=== PATIENT | male | born 1960 | race Caucasian/White ===

== ENCOUNTER 2017-10-04 00:50 | Inpatient (IN) | payer MEDICAID ==
[2017-10-04] VITALS: BP 128/59
[~2017-10-04] VITALS: Ht 180.3 cm; Wt 93.0 kg
[2017-10-04] MEDS ORDERED: MORPHINE SULFATE 8mg/ml INJ SDV IV PRN (01:15)
[2017-10-04] MEDS ORDERED: NITROGLYCERIN 0.4 MG SL TAB SL PRN (01:15)
[2017-10-04] MEDS ORDERED: ONDANSETRON HCL 4 MG/2 ML VIAL IV PRN (01:30)
[2017-10-04 05:00] VITALS: BP 113/67
[2017-10-04 06:49] LABS: Basophils # (auto) 0 uL; Eosinophils # (auto) 0.1 uL; Hemoglobin 10.1 g/dL (13.5-17.5); Monocytes # (auto) 0.3 uL; White Blood Cell 4.5 10^3/uL (4.4-10.8)
[2017-10-04 06:53] LABS: Basophils % (auto) 0.9 % (0.0-2.0); Eosinophils % (auto) 2.2 % (0.0-7.0); Hematocrit 33.3 % (41.0-53.0); Lymphocytes # (auto) 0.8 uL; Mean Corpuscular Hgb Conc. 30.3 g/dL (32.0-36.0); Mean Corpuscular Volume 69.2 fL (80.0-100.0); Monocytes % (auto) 7.3 % (0.0-12.0); Neutrophils # (auto) 3.2 uL; Neutrophils % (auto) 72.6 % (37.0-80.0); Platelet Count (auto) 229 10^3/uL (140-450); Red Blood Cells 4.81 10^6/uL (4.5-5.90)
[2017-10-04 07:01] LABS: BUN/Creatinine Ratio 13.6; Potassium 3.5 mmol/L (3.5-5.1)
[2017-10-04 07:09] LABS: INR 1.1 (0.9-1.15); Partial Thromboplastin Time 30.8 sec (22.64-33.71)
[2017-10-04 07:10] LABS: Red Cell Distribution Width 32.6 % (11.8-14.3)
[2017-10-04 09:00] VITALS: BP 115/65
[2017-10-04] MEDS ORDERED: IODIXANOL 320MG/ML 100ML BTL IV ONE (11:15)
[2017-10-04] MEDS ORDERED: LIDOCAINE 2%HCL (LOCAL ANESTH.) INJ 20ML MDV ONE (11:16)
[2017-10-04] MEDS: ANGIOMAX 250 MG VIAL IV ONE (12:04)
[2017-10-04] MEDS ORDERED: VERAPAMIL 2.5MG/ML INJ 2ML VIAL IV ONE (12:04)
[2017-10-04] MEDS ORDERED: MIDAZOLAM HCL 1MG/1ML-2 ML VIAL ONE (12:05)
[2017-10-04] MEDS ORDERED: fentaNYL CITRATE 100 MCG/2 ML VL ONE (12:05)
[2017-10-04] MEDS ORDERED: IOHEXOL 350 MG/ML 100ML IJ ONE (12:19)
[2017-10-04] MEDS ORDERED: ASPirin 325 MG TAB ONE (12:40)
[2017-10-04] MEDS ORDERED: CLOPIDOGREL BISULFATE 75 MG TAB ONE (12:41)
[2017-10-04 17:00] VITALS: BP 115/65
[2017-10-04 20:21] LABS: % Iron Saturation 6.5 % (20-55)
[2017-10-04 20:44] LABS: Folate (Folic Acid) 13.07 ng/mL (5.38-24)
[2017-10-04 22:00] VITALS: BP 116/68
[2017-10-04 22:45] LABS: Hematocrit 32.7 % (41.0-53.0); Hemoglobin 9.9 g/dL (13.5-17.5)
[2017-10-05 05:00] VITALS: BP 121/73
[2017-10-05 06:40] LABS: Basophils # (auto) 0.1 uL; Eosinophils # (auto) 0.1 uL; Eosinophils % (auto) 2.4 % (0.0-7.0); Hemoglobin 9.6 g/dL (13.5-17.5); Lymphocytes # (auto) 0.7 uL; Mean Corpuscular Hgb Conc. 30.2 g/dL (32.0-36.0); Monocytes # (auto) 0.4 uL; Neutrophils # (auto) 3.8 uL; White Blood Cell 5.1 10^3/uL (4.4-10.8)
[2017-10-05 06:41] LABS: Hematocrit 31.6 % (41.0-53.0); Lymphocytes % (auto) 13.7 % (10.0-50.0); Mean Corpuscular Hemoglobin 20.9 pg (28.0-32.0); Mean Corpuscular Volume 69.2 fL (80.0-100.0); Monocytes % (auto) 8.3 % (0.0-12.0); Neutrophils % (auto) 74.6 % (37.0-80.0); Platelet Count (auto) 260 10^3/uL (140-450); Red Blood Cells 4.57 10^6/uL (4.5-5.90)
[2017-10-05 06:53] LABS: BUN/Creatinine Ratio 14.8; Potassium 3.4 mmol/L (3.5-5.1)
[2017-10-05 06:54] LABS: Calcium 7.8 mg/dL (8.5-10.1)
[2017-10-05 07:13] LABS: Red Cell Distribution Width 32.9 % (11.8-14.3)
[2017-10-05] MEDS: ASPirin 81 mg TAB PO SCH (09:58)
[2017-10-05 13:00] VITALS: BP 101/53
[2017-10-05] MEDS: SODIUM FERR GLUC 62.5MG/5ML 125 MG in SODIUM CHL 0.9% 100 ML IV SCH (13:54)
[2017-10-05 17:00] VITALS: BP 122/69
[2017-10-05 17:51] LABS: Eosinophils # (auto) 0.1 uL; Hemoglobin 9.6 g/dL (13.5-17.5); Lymphocytes # (auto) 0.8 uL; Mean Corpuscular Volume 69.7 fL (80.0-100.0); Monocytes # (auto) 0.4 uL; Neutrophils # (auto) 3.6 uL; Nucleated Red Blood Cells % 0.1 %; White Blood Cell 4.9 10^3/uL (4.4-10.8)
[2017-10-05 17:53] LABS: Basophils # (auto) 0 uL; Basophils % (auto) 0.7 % (0.0-2.0); Eosinophils % (auto) 2.1 % (0.0-7.0); Hematocrit 32.2 % (41.0-53.0); Mean Corpuscular Hemoglobin 20.7 pg (28.0-32.0); Mean Corpuscular Hgb Conc. 29.8 g/dL (32.0-36.0); Monocytes % (auto) 8.9 % (0.0-12.0); Neutrophils % (auto) 72.3 % (37.0-80.0); Platelet Count (auto) 266 10^3/uL (140-450); Red Blood Cells 4.63 10^6/uL (4.5-5.90)
[2017-10-05 17:58] LABS: Red Cell Distribution Width 33.5 % (11.8-14.3)
[2017-10-05 22:00] VITALS: BP 105/68
[2017-10-05] MEDS: ATORVASTATIN 20 MG TAB PO SCH (22:35)
[2017-10-06 05:00] VITALS: BP 114/64
[2017-10-06 06:34] LABS: Basophils # (auto) 0 uL; Eosinophils # (auto) 0.1 uL; Hemoglobin 9.7 g/dL (13.5-17.5); Lymphocytes # (auto) 0.6 uL; Monocytes # (auto) 0.3 uL
[2017-10-06 06:36] LABS: Basophils % (auto) 0.9 % (0.0-2.0); Eosinophils % (auto) 3.8 % (0.0-7.0); Hematocrit 31.7 % (41.0-53.0); Lymphocytes % (auto) 15.9 % (10.0-50.0); Mean Corpuscular Hemoglobin 21.1 pg (28.0-32.0); Mean Corpuscular Hgb Conc. 30.7 g/dL (32.0-36.0); Mean Corpuscular Volume 68.9 fL (80.0-100.0); Monocytes % (auto) 8.2 % (0.0-12.0); Neutrophils # (auto) 2.8 uL; Neutrophils % (auto) 71.2 % (37.0-80.0); Platelet Count (auto) 274 10^3/uL (140-450); Red Blood Cells 4.59 10^6/uL (4.5-5.90); White Blood Cell 3.9 10^3/uL (4.4-10.8)
[2017-10-06 06:41] LABS: INR 1.07 (0.9-1.15); Partial Thromboplastin Time 31.9 sec (22.64-33.71); Prothrombin Time 11.7 sec (9.37-12.3)
[2017-10-06 06:46] LABS: BUN/Creatinine Ratio 10.2; Potassium 3.4 mmol/L (3.5-5.1)
[2017-10-06 06:50] LABS: Red Cell Distribution Width 33.6 % (11.8-14.3)
[2017-10-06 08:20] VITALS: BP 123/74
[2017-10-06] MEDS: ASPirin 81 mg TAB PO SCH (09:54)
[2017-10-06] MEDS ORDERED: POTASSIUM CHL 20 Meq TABLET PO ONE (12:15)
[2017-10-06] MEDS: SODIUM FERR GLUC 62.5MG/5ML 125 MG in SODIUM CHL 0.9% 100 ML IV SCH (14:32)
[2017-10-06 17:17] VITALS: BP 115/74
[2017-10-06] MEDS: ATORVASTATIN 20 MG TAB PO SCH (21:44)
[2017-10-06 22:00] VITALS: BP 107/63
[2017-10-07 05:00] VITALS: BP 112/75
[2017-10-07 06:45] LABS: Basophils # (auto) 0 uL; Eosinophils # (auto) 0.1 uL; Hemoglobin 10.1 g/dL (13.5-17.5); Monocytes # (auto) 0.4 uL; Monocytes % (auto) 9.6 % (0.0-12.0); Neutrophils # (auto) 2.6 uL; White Blood Cell 3.8 10^3/uL (4.4-10.8)
[2017-10-07 06:47] LABS: Eosinophils % (auto) 2.8 % (0.0-7.0); Hematocrit 34.5 % (41.0-53.0); Lymphocytes # (auto) 0.6 uL; Mean Corpuscular Hemoglobin 20.7 pg (28.0-32.0); Mean Corpuscular Hgb Conc. 29.3 g/dL (32.0-36.0); Mean Corpuscular Volume 70.5 fL (80.0-100.0); Neutrophils % (auto) 69.6 % (37.0-80.0); Nucleated Red Blood Cells % 0.1 %; Platelet Count (auto) 301 10^3/uL (140-450); Red Blood Cells 4.88 10^6/uL (4.5-5.90)
[2017-10-07 06:53] LABS: Red Cell Distribution Width 33.6 % (11.8-14.3)
[2017-10-07 07:03] LABS: BUN/Creatinine Ratio 7.9; Calcium 7.8 mg/dL (8.5-10.1); Magnesium 2.2 mg/dL (1.6-2.6)
[2017-10-07 07:12] LABS: Potassium 3.9 mmol/L (3.5-5.1)
[2017-10-07 09:00] VITALS: BP 113/71
[2017-10-07] MEDS: ASPirin 81 mg TAB PO SCH (09:23)
[2017-10-07] MEDS ORDERED: MORPHINE SULFATE 8mg/ml INJ SDV IV PRN (09:30)
[2017-10-07] MEDS ORDERED: MAGNESIUM CITRATE SOLUTION 300 ML BTL PO ONE (10:00)
[2017-10-07] MEDS: D5W/SOD CHL 0.45% 1,000 ML IV SCH ×2 (10:30→20:08)
[2017-10-07] MEDS: metroNIDAZOLE 500MG/100ML 100 ML IV SCH ×2 (12:02→20:21)
[2017-10-07 13:00] VITALS: BP 103/68
[2017-10-07] MEDS ORDERED: metroNIDAZOLE 500MG/100ML 100 ML IV SCH (14:00)
[2017-10-07] MEDS: ceFAZolin 1GM/100ML 50 ML IV SCH ×2 (14:16→22:13)
[2017-10-07] MEDS: SODIUM FERR GLUC 62.5MG/5ML 125 MG in SODIUM CHL 0.9% 100 ML IV SCH (15:30)
[2017-10-07 17:00] VITALS: BP 116/73
[2017-10-07] MEDS: BOOST PLUS 8 ounce PO SCH (18:08)
[2017-10-07 22:00] VITALS: BP 110/69
[2017-10-07] MEDS: ATORVASTATIN 20 MG TAB PO SCH (22:13)
[2017-10-07] MEDS: ACETAMINOPHEN 325 MG TAB PO PRN (22:46)
[2017-10-08] MEDS: metroNIDAZOLE 500MG/100ML 100 ML IV SCH ×3 (04:00→19:54)
[2017-10-08 05:00] VITALS: BP 109/61
[2017-10-08] MEDS: D5W/SOD CHL 0.45% 1,000 ML IV SCH ×2 (05:30→18:13)
[2017-10-08] MEDS: ceFAZolin 1GM/100ML 50 ML IV SCH ×3 (06:00→21:36)
[2017-10-08 07:20] LABS: Eosinophils # (auto) 0.1 uL; Lymphocytes # (auto) 0.6 uL; Mean Corpuscular Volume 70.3 fL (80.0-100.0); Monocytes # (auto) 0.3 uL; Platelet Count (auto) 280 10^3/uL (140-450)
[2017-10-08 07:23] LABS: Basophils # (auto) 0.1 uL; Basophils % (auto) 1.5 % (0.0-2.0); Eosinophils % (auto) 3.4 % (0.0-7.0); Hematocrit 31.4 % (41.0-53.0); Hemoglobin 9.5 g/dL (13.5-17.5); Lymphocytes % (auto) 17.6 % (10.0-50.0); Mean Corpuscular Hemoglobin 21.2 pg (28.0-32.0); Mean Corpuscular Hgb Conc. 30.2 g/dL (32.0-36.0); Neutrophils # (auto) 2.5 uL; Neutrophils % (auto) 68.5 % (37.0-80.0); Nucleated Red Blood Cells % 0.3 %; Red Blood Cells 4.47 10^6/uL (4.5-5.90); White Blood Cell 3.7 10^3/uL (4.4-10.8)
[2017-10-08 07:28] LABS: INR 1.07 (0.9-1.15); Partial Thromboplastin Time 35.5 sec (22.64-33.71); Prothrombin Time 11.7 sec (9.37-12.3)
[2017-10-08 07:40] LABS: BUN/Creatinine Ratio 7.2; Calcium 7.7 mg/dL (8.5-10.1); Potassium 3.7 mmol/L (3.5-5.1)
[2017-10-08] MEDS: BOOST PLUS 8 ounce PO SCH ×2 (08:00→18:00)
[2017-10-08] MEDS ORDERED: MAGNESIUM CITRATE SOLUTION 300 ML BTL PO ONE (09:30)
[2017-10-08 09:55] VITALS: BP 105/65
[2017-10-08] MEDS ORDERED: FAMO-12 PO (10:59)
[2017-10-08] MEDS ORDERED: ENAL2.5T PO (10:59)
[2017-10-08] MEDS ORDERED: METF-370 PO (10:59)
[2017-10-08] MEDS ORDERED: CITA-77 PO (10:59)
[2017-10-08] MEDS ORDERED: ATO40T PO (10:59)
[2017-10-08] MEDS ORDERED: OXCA600T3 PO (10:59)
[2017-10-08 11:43] VITALS: BP 97/56
[2017-10-08 17:03] VITALS: BP 111/69
[2017-10-08] MEDS: SODIUM FERR GLUC 62.5MG/5ML 125 MG in SODIUM CHL 0.9% 100 ML IV SCH (18:13)
[2017-10-08] MEDS: ATORVASTATIN 20 MG TAB PO SCH (21:36)
[2017-10-08 22:00] VITALS: BP 108/71
[2017-10-08] MEDS: ACETAMINOPHEN 325 MG TAB PO PRN (23:39)
[2017-10-08 23:58] LABS: Urine Bacteria NONE SEEN /hpf (None Seen); Urine Blood Negative /uL (Negative); Urine Mucus FEW (None Seen); Urine Specific Gravity 1.015 (1.001-1.035); Urine WBC 1 /hpf (0 - 3)
[2017-10-09] VITALS (35 sets, daily range): BP systolic 66–135; BP diastolic 45–91
[2017-10-09] MEDS: D5W/SOD CHL 0.45% 1,000 ML IV SCH (01:59)
[2017-10-09] MEDS: metroNIDAZOLE 500MG/100ML 100 ML IV SCH ×3 (04:18→19:53)
[2017-10-09] MEDS: ceFAZolin 1GM/100ML 50 ML IV SCH ×3 (05:45→23:07)
[2017-10-09 06:35] LABS: Basophils # (auto) 0 uL; Basophils % (auto) 0.8 % (0.0-2.0); Eosinophils # (auto) 0.1 uL; Lymphocytes # (auto) 0.9 uL; Monocytes # (auto) 0.3 uL; Neutrophils # (auto) 2.3 uL; White Blood Cell 3.7 10^3/uL (4.4-10.8)
[2017-10-09 06:37] LABS: Hematocrit 33.4 % (41.0-53.0); Lymphocytes % (auto) 23.9 % (10.0-50.0); Mean Corpuscular Hemoglobin 21.4 pg (28.0-32.0); Mean Corpuscular Hgb Conc. 30.1 g/dL (32.0-36.0); Mean Corpuscular Volume 71.2 fL (80.0-100.0); Monocytes % (auto) 8.5 % (0.0-12.0); Neutrophils % (auto) 62.8 % (37.0-80.0); Nucleated Red Blood Cells % 0.2 %; Platelet Count (auto) 320 10^3/uL (140-450); Red Blood Cells 4.69 10^6/uL (4.5-5.90)
[2017-10-09 06:42] LABS: INR 1.1 (0.9-1.15); Partial Thromboplastin Time 37.1 sec (22.64-33.71)
[2017-10-09 06:49] LABS: Albumin 2.3 g/dL (3.4-5.0); BUN/Creatinine Ratio 4.4; Calcium 7.8 mg/dL (8.5-10.1); Potassium 3.7 mmol/L (3.5-5.1)
[2017-10-09 06:51] LABS: Bilirubin, Total 0.3 mg/dL (0.2-1.0); Total Protein 5.2 g/dL (6.4-8.2)
[2017-10-09 06:52] LABS: Red Cell Distribution Width 33.2 % (11.8-14.3)
[2017-10-09] MEDS ORDERED: HYDROmorphone HCL 2 MG/ML VL ONE ×2 (07:24→10:04)
[2017-10-09] MEDS ORDERED: fentaNYL CITRATE 100 MCG/2 ML VL ONE ×2 (07:24→09:57)
[2017-10-09] MEDS ORDERED: ROCURONIUM 10MG/ML 10ML VIAL IV ONE ×2 (07:24→10:04)
[2017-10-09] MEDS ORDERED: MIDAZOLAM HCL 1MG/1ML-2 ML VIAL ONE ×2 (07:24→11:36)
[2017-10-09] MEDS ORDERED: ETOMIDATE (2MG/ML) 20ML VIAL IV ONE (07:24)
[2017-10-09] MEDS: BOOST PLUS 8 ounce PO SCH ×2 (08:00→17:04)
[2017-10-09] MEDS ORDERED: ceFAZolin 1GM VL ONE (08:37)
[2017-10-09] MEDS ORDERED: BUPIVACAINE HCL 0.25% P/F 10 ML VIAL ONE (10:24)
[2017-10-09] MEDS ORDERED: ACCU-CHEK COMFORT CURVE STRIP VI ONE (10:45)
[2017-10-09] MEDS: LACTATED RINGER'S 1,000 ML IV SCH ×3 (11:12→23:29)
[2017-10-09] MEDS ORDERED: MIDAZOLAM HCL 1MG/1ML-2 ML VIAL IM ONE (11:45)
[2017-10-09] MEDS ORDERED: MIDAZOLAM DRIP 50 mg/50mL 50 ML IV ONE (11:58)
[2017-10-09] MEDS: MIDAZOLAM DRIP 50 mg/50mL 50 ML IV SCH ×2 (12:06→20:08)
[2017-10-09 12:07] LABS: Hemoglobin 13.1 g/dL (13.5-17.5)
[2017-10-09 12:09] LABS: Basophils # (auto) 0.1 uL; Basophils % (auto) 1.1 % (0.0-2.0); Eosinophils # (auto) 0.1 uL; Eosinophils % (auto) 0.9 % (0.0-7.0); Hematocrit 43.1 % (41.0-53.0); Lymphocytes # (auto) 0.8 uL; Lymphocytes % (auto) 10.5 % (10.0-50.0); Mean Corpuscular Hemoglobin 22.6 pg (28.0-32.0); Mean Corpuscular Hgb Conc. 30.5 g/dL (32.0-36.0); Monocytes # (auto) 0.5 uL; Monocytes % (auto) 6.3 % (0.0-12.0); Neutrophils % (auto) 81.2 % (37.0-80.0); Nucleated Red Blood Cells % 1.1 %; Platelet Count (auto) 249 10^3/uL (140-450); Red Blood Cells 5.82 10^6/uL (4.5-5.90); White Blood Cell 7.4 10^3/uL (4.4-10.8)
[2017-10-09 12:10] LABS: Red Cell Distribution Width 31.8 % (11.8-14.3)
[2017-10-09] MEDS: MORPHINE SULFATE 8mg/ml INJ SDV IV PRN ×7 (12:15→19:51)
[2017-10-09 12:18] LABS: INR 1.16 (0.9-1.15); Partial Thromboplastin Time 35.5 sec (22.64-33.71); Prothrombin Time 12.7 sec (9.37-12.3)
[2017-10-09 12:31] LABS: BUN/Creatinine Ratio 5.9; Bilirubin, Total 0.8 mg/dL (0.2-1.0); Calcium 7.1 mg/dL (8.5-10.1); Potassium 4.1 mmol/L (3.5-5.1); Total Protein 4.6 g/dL (6.4-8.2)
[2017-10-09] MEDS ORDERED: metroNIDAZOLE 500MG/100ML 100 ML IV SCH (14:00)
[2017-10-09] MEDS ORDERED: ceFAZolin 1GM 2 GM in D5W 5% 100 ML IV SCH (14:00)
[2017-10-09] MEDS: NOREPINEPHRINE 16 MG/500ML KIT 500 ML IV SCH ×2 (15:05→18:43)
[2017-10-09] MEDS: SODIUM FERR GLUC 62.5MG/5ML 125 MG in SODIUM CHL 0.9% 100 ML IV SCH (18:42)
[2017-10-09] MEDS: ATORVASTATIN 20 MG TAB PO SCH (23:07)
[2017-10-10] VITALS (96 sets, daily range): BP systolic 85–129; BP diastolic 59–93
[2017-10-10] MEDS: MIDAZOLAM DRIP 50 mg/50mL 50 ML IV SCH ×5 (01:17→22:07)
[2017-10-10 03:52] LABS: Basophils # (auto) 0.1 uL; Eosinophils # (auto) 0 uL; Lymphocytes # (auto) 0.8 uL; Mean Corpuscular Volume 73.2 fL (80.0-100.0)
[2017-10-10 03:55] LABS: Basophils % (auto) 0.4 % (0.0-2.0); Eosinophils % (auto) 0.1 % (0.0-7.0); Hematocrit 45.9 % (41.0-53.0); Hemoglobin 14.4 g/dL (13.5-17.5); Lymphocytes % (auto) 5.4 % (10.0-50.0); Mean Corpuscular Hemoglobin 22.9 pg (28.0-32.0); Mean Corpuscular Hgb Conc. 31.3 g/dL (32.0-36.0); Monocytes # (auto) 0.6 uL; Monocytes % (auto) 4.1 % (0.0-12.0); Neutrophils # (auto) 13.3 uL; Platelet Count (auto) 575 10^3/uL (140-450); Red Blood Cells 6.27 10^6/uL (4.5-5.90); White Blood Cell 14.7 10^3/uL (4.4-10.8)
[2017-10-10 04:11] LABS: BUN/Creatinine Ratio 7.4; Calcium 7.6 mg/dL (8.5-10.1); Magnesium 2.6 mg/dL (1.6-2.6); Potassium 4.3 mmol/L (3.5-5.1)
[2017-10-10 04:49] LABS: Red Cell Distribution Width 31.8 % (11.8-14.3)
[2017-10-10] MEDS: metroNIDAZOLE 500MG/100ML 100 ML IV SCH ×3 (05:42→20:38)
[2017-10-10] MEDS: ceFAZolin 1GM/100ML 50 ML IV SCH ×3 (06:19→21:45)
[2017-10-10] MEDS: BOOST PLUS 8 ounce PO SCH ×2 (08:00→17:04)
[2017-10-10] MEDS: LACTATED RINGER'S 1,000 ML IV SCH (09:11)
[2017-10-10] MEDS: MORPHINE SULFATE 8mg/ml INJ SDV IV PRN ×3 (09:50→17:55)
[2017-10-10] MEDS: ACETAMINOPHEN 325 MG TAB PO PRN (14:55)
[2017-10-10] MEDS: SODIUM FERR GLUC 62.5MG/5ML 125 MG in SODIUM CHL 0.9% 100 ML IV SCH (16:19)
[2017-10-10] MEDS ORDERED: SODIUM BICARBONATE 50ML VIAL 50 ML in D5W/SOD CHL 0.45% 1,000 ML IV SCH (16:45)
[2017-10-10] MEDS ORDERED: ALBUMIN 25% 100 ML IV SCH (16:45)
[2017-10-10 17:27] LABS: Creatinine, Urine 300 mg/dL (30.0-125.0); Sodium Urine 58 mmol/L (40-220)
[2017-10-10] MEDS: SODIUM BICARBONATE 50ML VIAL 50 ML in D5W/SOD CHL 0.45% 1,000 ML IV SCH (18:05)
[2017-10-10] MEDS: ALBUMIN 25% 100 ML IV SCH (18:14)
[2017-10-10] MEDS ORDERED: DEXTROSE (50%) 50ML SYRG IV PRN (19:15)
[2017-10-10] MEDS: ATORVASTATIN 20 MG TAB PO SCH (21:44)
[2017-10-11] VITALS (90 sets, daily range): BP systolic 86–136; BP diastolic 43–76
[2017-10-11] MEDS: SODIUM BICARBONATE 50ML VIAL 50 ML in D5W/SOD CHL 0.45% 1,000 ML IV SCH ×4 (01:09→21:00)
[2017-10-11] MEDS: ALBUMIN 25% 100 ML IV SCH ×3 (01:10→16:27)
[2017-10-11 03:10] LABS: Eosinophils # (auto) 0.1 uL; Lymphocytes # (auto) 0.8 uL; Monocytes # (auto) 0.4 uL; Neutrophils # (auto) 6.6 uL; White Blood Cell 7.9 10^3/uL (4.4-10.8)
[2017-10-11 03:20] LABS: Basophils # (auto) 0.1 uL; Basophils % (auto) 0.8 % (0.0-2.0); Eosinophils % (auto) 1.1 % (0.0-7.0); Hematocrit 35.9 % (41.0-53.0); Hemoglobin 11.1 g/dL (13.5-17.5); Lymphocytes % (auto) 9.5 % (10.0-50.0); Mean Corpuscular Hemoglobin 22.6 pg (28.0-32.0); Mean Corpuscular Hgb Conc. 31.1 g/dL (32.0-36.0); Mean Corpuscular Volume 72.9 fL (80.0-100.0); Monocytes % (auto) 5.2 % (0.0-12.0); Neutrophils % (auto) 83.4 % (37.0-80.0); Platelet Count (auto) 320 10^3/uL (140-450); Red Blood Cells 4.92 10^6/uL (4.5-5.90)
[2017-10-11 03:22] LABS: Albumin 2.1 g/dL (3.4-5.0); Chloride 112 mmol/L (98-107); Potassium 3.9 mmol/L (3.5-5.1); Sodium 142 mmol/L (136-145)
[2017-10-11 03:26] LABS: Anion Gap 7 (5-15); BUN/Creatinine Ratio 14.1; Blood Urea Nitrogen 11 mg/dL (7-18); Calcium 7.6 mg/dL (8.5-10.1); Carbon Dioxide 23 mmol/L (21-32); GFR African American 131 mL/min; GFR Non-African American 108 mL/min; Glucose 158 mg/dL (74-106); Magnesium 2.4 mg/dL (1.6-2.6)
[2017-10-11 03:37] LABS: Alanine Aminotransferase < 6 U/L (16-61); Alkaline Phosphatase 70 U/L (45-117); Aspartate Aminotransferase 13 U/L (15-37); Bilirubin, Total 0.3 mg/dL (0.2-1.0); Total Protein 4.4 g/dL (6.4-8.2)
[2017-10-11 03:40] LABS: Red Cell Distribution Width 31.9 % (11.8-14.3)
[2017-10-11] MEDS: metroNIDAZOLE 500MG/100ML 100 ML IV SCH ×3 (03:54→20:26)
[2017-10-11 04:03] LABS: Phosphorus 2.5 mg/dL (2.5-4.90)
[2017-10-11] MEDS: InsuLIN REG 1unit/0.01ml Soln (100units/ml) SC SCH ×4 (06:00→18:00)
[2017-10-11] MEDS: MIDAZOLAM DRIP 50 mg/50mL 50 ML IV SCH ×5 (06:13→22:02)
[2017-10-11] MEDS: ceFAZolin 1GM/100ML 50 ML IV SCH ×3 (06:13→22:02)
[2017-10-11] MEDS: ACCU-CHEK COMFORT CURVE STRIP VI SCH ×4 (06:30→18:10)
[2017-10-11] MEDS: BOOST PLUS 8 ounce PO SCH ×2 (08:00→16:54)
[2017-10-11] MEDS: PANTOPRAZOLE 40 MG/10 ML VIAL IV SCH (09:21)
[2017-10-11] MEDS: NOREPINEPHRINE 16 MG/500ML KIT 500 ML IV SCH (15:05)
[2017-10-11] MEDS: ATORVASTATIN 20 MG TAB PO SCH (22:00)
[2017-10-12] VITALS (83 sets, daily range): BP systolic 107–169; BP diastolic 50–104
[2017-10-12] MEDS: ACCU-CHEK COMFORT CURVE STRIP VI SCH ×4 (00:09→17:25)
[2017-10-12] MEDS: ALBUMIN 25% 100 ML IV SCH ×2 (01:14→08:58)
[2017-10-12] MEDS: MIDAZOLAM DRIP 50 mg/50mL 50 ML IV SCH ×2 (02:00→07:08)
[2017-10-12 03:55] LABS: Basophils # (auto) 0 uL; Basophils % (auto) 0.5 % (0.0-2.0); Eosinophils # (auto) 0.1 uL; Eosinophils % (auto) 1.7 % (0.0-7.0); Lymphocytes # (auto) 0.7 uL; Monocytes # (auto) 0.3 uL
[2017-10-12 03:57] LABS: BUN/Creatinine Ratio 10.8; Calcium 7.6 mg/dL (8.5-10.1); Magnesium 2.7 mg/dL (1.6-2.6); Phosphorus 1.6 mg/dL (2.5-4.90); Potassium 3.6 mmol/L (3.5-5.1)
[2017-10-12 03:59] LABS: Hemoglobin 9.1 g/dL (13.5-17.5); Lymphocytes % (auto) 11.2 % (10.0-50.0); Mean Corpuscular Hgb Conc. 31.2 g/dL (32.0-36.0); Mean Corpuscular Volume 73.8 fL (80.0-100.0); Monocytes % (auto) 5.8 % (0.0-12.0); Neutrophils # (auto) 4.8 uL; Neutrophils % (auto) 80.8 % (37.0-80.0); Platelet Count (auto) 278 10^3/uL (140-450); Red Blood Cells 3.94 10^6/uL (4.5-5.90)
[2017-10-12] MEDS: SODIUM BICARBONATE 50ML VIAL 50 ML in D5W/SOD CHL 0.45% 1,000 ML IV SCH ×4 (04:00→18:00)
[2017-10-12] MEDS: metroNIDAZOLE 500MG/100ML 100 ML IV SCH ×3 (04:04→20:00)
[2017-10-12 04:22] LABS: Red Cell Distribution Width 31.1 % (11.8-14.3)
[2017-10-12] MEDS: InsuLIN REG 1unit/0.01ml Soln (100units/ml) SC SCH ×4 (06:00→17:25)
[2017-10-12] MEDS: ceFAZolin 1GM/100ML 50 ML IV SCH ×3 (06:02→22:10)
[2017-10-12] MEDS: BOOST PLUS 8 ounce PO SCH ×2 (08:00→18:00)
[2017-10-12] MEDS ORDERED: SODIUM BICARBONATE 50ML VIAL 50 ML in D5W/SOD CHL 0.45% 1,000 ML IV SCH (08:00)
[2017-10-12] MEDS: PANTOPRAZOLE 40 MG/10 ML VIAL IV SCH (08:58)
[2017-10-12] MEDS: NOREPINEPHRINE 16 MG/500ML KIT 500 ML IV SCH (15:05)
[2017-10-12] MEDS ORDERED: FUROSEMIDE 40 MG/4 ML VIAL ONE (17:41)
[2017-10-12] MEDS ORDERED: FUROSEMIDE 40 MG/4 ML VIAL IV ONE (17:45)
[2017-10-12] MEDS ORDERED: POTASSIUM PHOSPHATE 26.4 MEQ in SODIUM CHL 0.9% 100 ML IV ONE (17:45)
[2017-10-12] MEDS: ATORVASTATIN 20 MG TAB PO SCH (22:10)
[2017-10-12] MEDS: ALBUTEROL SULF 2.5 MG/0.5ML(0.5%) NEB SOLN NEB SCH (22:25)
[2017-10-13] VITALS (21 sets, daily range): BP systolic 92–135; BP diastolic 46–86
[2017-10-13] MEDS: ACCU-CHEK COMFORT CURVE STRIP VI SCH ×4 (00:15→19:23)
[2017-10-13] MEDS: ACETAMINOPHEN 325 MG TAB PO PRN (00:30)
[2017-10-13] MEDS: SODIUM BICARBONATE 50ML VIAL 50 ML in D5W/SOD CHL 0.45% 1,000 ML IV SCH ×2 (01:00→09:03)
[2017-10-13] MEDS: ALBUTEROL SULF 2.5 MG/0.5ML(0.5%) NEB SOLN NEB SCH ×6 (01:58→22:38)
[2017-10-13] MEDS: metroNIDAZOLE 500MG/100ML 100 ML IV SCH ×3 (04:10→19:57)
[2017-10-13 04:41] LABS: Basophils # (auto) 0 uL; Eosinophils # (auto) 0.1 uL; Hemoglobin 10.3 g/dL (13.5-17.5); Lymphocytes # (auto) 0.7 uL; Monocytes # (auto) 0.3 uL; Monocytes % (auto) 5.7 % (0.0-12.0); Platelet Count (auto) 295 10^3/uL (140-450)
[2017-10-13 04:43] LABS: Basophils % (auto) 0.6 % (0.0-2.0); Eosinophils % (auto) 1.9 % (0.0-7.0); Hematocrit 33.5 % (41.0-53.0); Lymphocytes % (auto) 12.9 % (10.0-50.0); Mean Corpuscular Hemoglobin 23.2 pg (28.0-32.0); Mean Corpuscular Hgb Conc. 30.9 g/dL (32.0-36.0); Neutrophils # (auto) 4.2 uL; Neutrophils % (auto) 78.9 % (37.0-80.0); Red Blood Cells 4.46 10^6/uL (4.5-5.90); White Blood Cell 5.4 10^3/uL (4.4-10.8)
[2017-10-13 05:01] LABS: Potassium 3.3 mmol/L (3.5-5.1)
[2017-10-13 05:08] LABS: Red Cell Distribution Width 31.8 % (11.8-14.3)
[2017-10-13 05:09] LABS: BUN/Creatinine Ratio 10.5; Calcium 7.9 mg/dL (8.5-10.1); Magnesium 2.3 mg/dL (1.6-2.6)
[2017-10-13] MEDS: ceFAZolin 1GM/100ML 50 ML IV SCH ×3 (06:00→21:58)
[2017-10-13] MEDS: InsuLIN REG 1unit/0.01ml Soln (100units/ml) SC SCH ×4 (06:00→18:00)
[2017-10-13] MEDS: BOOST PLUS 8 ounce PO SCH ×2 (08:00→17:57)
[2017-10-13] MEDS: MORPHINE SULFATE 8mg/ml INJ SDV IV PRN ×4 (09:00→20:23)
[2017-10-13] MEDS: PANTOPRAZOLE 40 MG/10 ML VIAL IV SCH (10:29)
[2017-10-13] MEDS: MIDAZOLAM DRIP 50 mg/50mL 50 ML IV SCH (11:56)
[2017-10-13] MEDS ORDERED: D5W 5% 1,000 ML IV SCH (13:30)
[2017-10-13] MEDS ORDERED: POTASSIUM CHL 20MEQ/100ML 100 ML IV ONE (14:15)
[2017-10-13] MEDS ORDERED: TPN PER PHARMACY 0 ML IV SCH (15:00)
[2017-10-13] MEDS: NOREPINEPHRINE 16 MG/500ML KIT 500 ML IV SCH (15:05)
[2017-10-13] MEDS ORDERED: POTASSIUM CHL 20MEQ/100ML 100 ML IV SCH (16:00)
[2017-10-13] MEDS: D5W 5% 1,000 ML IV SCH (19:58)
[2017-10-13] MEDS ORDERED: CLINIMIX PER PHARMACY IV NR ×3 (20:00)
[2017-10-13] MEDS: ATORVASTATIN 20 MG TAB PO SCH (21:58)
[2017-10-14] VITALS (8 sets, daily range): BP systolic 109–126; BP diastolic 53–70
[2017-10-14] MEDS: ALBUTEROL SULF 2.5 MG/0.5ML(0.5%) NEB SOLN NEB SCH ×7 (02:03→23:30)
[2017-10-14] MEDS: metroNIDAZOLE 500MG/100ML 100 ML IV SCH ×3 (04:00→19:45)
[2017-10-14 05:04] LABS: Albumin 2.3 g/dL (3.4-5.0); Bilirubin, Total 0.3 mg/dL (0.2-1.0); Calcium 7.6 mg/dL (8.5-10.1); Magnesium 2.5 mg/dL (1.6-2.6); Phosphorus 2.1 mg/dL (2.5-4.90); Potassium 3.5 mmol/L (3.5-5.1); Pre Albumin 7.4 mg/dL (20.0-40.0); Total Protein 4.4 g/dL (6.4-8.2)
[2017-10-14] MEDS: ceFAZolin 1GM/100ML 50 ML IV SCH ×3 (05:32→22:08)
[2017-10-14] MEDS: InsuLIN REG 1unit/0.01ml Soln (100units/ml) SC SCH ×5 (06:00→23:41)
[2017-10-14] MEDS: D5W 5% 1,000 ML IV SCH (06:15)
[2017-10-14] MEDS: ACCU-CHEK COMFORT CURVE STRIP VI SCH ×5 (06:16→23:41)
[2017-10-14] MEDS: BOOST PLUS 8 ounce PO SCH ×2 (08:00→17:19)
[2017-10-14] MEDS: MORPHINE SULFATE 4 MG/ML SYR/VIAL IV PRN ×3 (11:47→23:10)
[2017-10-14] MEDS: PANTOPRAZOLE 40 MG/10 ML VIAL IV SCH (12:00)
[2017-10-14] MEDS ORDERED: ACCU-CHEK COMFORT CURVE STRIP VI SCH (12:02)
[2017-10-14] MEDS ORDERED: DEXTROSE (50%) 50ML SYRG IV PRN (12:15)
[2017-10-14] MEDS ORDERED: TPN PER PHARMACY IV NR ×9 (20:00)
[2017-10-14] MEDS: SODIUM FERR GLUC 62.5MG/5ML 125 MG in SODIUM CHL 0.9% 100 ML IV SCH (21:45)
[2017-10-14] MEDS: ATORVASTATIN 20 MG TAB PO SCH (22:09)
[2017-10-15] MEDS ORDERED: DEXTROSE (50%) 50ML SYRG IV SCH
[2017-10-15] MEDS: MORPHINE SULFATE 4 MG/ML SYR/VIAL IV PRN ×2 (03:12→12:02)
[2017-10-15] MEDS: metroNIDAZOLE 500MG/100ML 100 ML IV SCH ×3 (03:38→21:04)
[2017-10-15 05:00] VITALS: BP 119/69
[2017-10-15] MEDS: D5W 5% 1,000 ML IV SCH ×2 (05:20→22:59)
[2017-10-15] MEDS: ceFAZolin 1GM/100ML 50 ML IV SCH ×3 (05:53→22:49)
[2017-10-15] MEDS: InsuLIN REG 1unit/0.01ml Soln (100units/ml) SC SCH ×4 (06:00→23:52)
[2017-10-15] MEDS: ACCU-CHEK COMFORT CURVE STRIP VI SCH ×4 (06:06→23:52)
[2017-10-15] MEDS: ALBUTEROL SULF 2.5 MG/0.5ML(0.5%) NEB SOLN NEB SCH ×4 (06:07→19:34)
[2017-10-15 07:52] LABS: Alanine Aminotransferase < 6 U/L (16-61); Albumin 2.3 g/dL (3.4-5.0); Alkaline Phosphatase 70 U/L (45-117); Anion Gap 5 (5-15); Aspartate Aminotransferase 10 U/L (15-37); Bilirubin, Total 0.3 mg/dL (0.2-1.0); Blood Urea Nitrogen 7 mg/dL (7-18); Calcium 7.9 mg/dL (8.5-10.1); Carbon Dioxide 27 mmol/L (21-32); Chloride 108 mmol/L (98-107); GFR African American 219 mL/min; GFR Non-African American 181 mL/min; Glucose 98 mg/dL (74-106); Magnesium 2.2 mg/dL (1.6-2.6); Phosphorus 2.4 mg/dL (2.5-4.90); Potassium 3.5 mmol/L (3.5-5.1); Sodium 140 mmol/L (136-145); Total Protein 4.7 g/dL (6.4-8.2)
[2017-10-15] MEDS: BOOST PLUS 8 ounce PO SCH ×2 (08:00→18:00)
[2017-10-15 08:08] VITALS: BP 116/73
[2017-10-15] MEDS ORDERED: GASTROGRAFIN 120 ML SOL ONE (09:18)
[2017-10-15] MEDS: PANTOPRAZOLE 40 MG/10 ML VIAL IV SCH (11:07)
[2017-10-15 11:42] VITALS: BP 125/76
[2017-10-15] MEDS ORDERED: POTASSIUM PHOSP 22MEQ(15MMOLE) in NS 100 ML IV ONE (12:00)
[2017-10-15] MEDS: SODIUM FERR GLUC 62.5MG/5ML 125 MG in SODIUM CHL 0.9% 100 ML IV SCH (12:02)
[2017-10-15 16:11] VITALS: BP 114/65
[2017-10-15] MEDS ORDERED: TPN PER PHARMACY IV NR ×10 (20:00)
[2017-10-15 20:39] VITALS: BP 114/65
[2017-10-15 22:00] VITALS: BP 131/74
[2017-10-15] MEDS: ATORVASTATIN 20 MG TAB PO SCH (22:48)
[2017-10-16] MEDS: ALBUTEROL SULF 2.5 MG/0.5ML(0.5%) NEB SOLN NEB SCH ×4 (00:20→09:51)
[2017-10-16] MEDS: metroNIDAZOLE 500MG/100ML 100 ML IV SCH ×2 (04:00→12:21)
[2017-10-16 05:50] VITALS: BP 124/76
[2017-10-16] MEDS: InsuLIN REG 1unit/0.01ml Soln (100units/ml) SC SCH ×3 (06:00→18:00)
[2017-10-16] MEDS: ACCU-CHEK COMFORT CURVE STRIP VI SCH ×3 (06:44→18:46)
[2017-10-16] MEDS: ceFAZolin 1GM/100ML 50 ML IV SCH (06:46)
[2017-10-16 07:58] LABS: Albumin 2.4 g/dL (3.4-5.0); BUN/Creatinine Ratio 14.8; Bilirubin, Total 0.4 mg/dL (0.2-1.0); Calcium 7.9 mg/dL (8.5-10.1); Magnesium 2.4 mg/dL (1.6-2.6); Phosphorus 2.8 mg/dL (2.5-4.90); Potassium 3.8 mmol/L (3.5-5.1); Total Protein 5.2 g/dL (6.4-8.2)
[2017-10-16] MEDS: BOOST PLUS 8 ounce PO SCH ×2 (08:00→18:00)
[2017-10-16 09:00] VITALS: BP 136/72
[2017-10-16] MEDS: PANTOPRAZOLE 40 MG/10 ML VIAL IV SCH (09:49)
[2017-10-16] MEDS: MORPHINE SULFATE 4 MG/ML SYR/VIAL IV PRN (09:54)
[2017-10-16] MEDS ORDERED: LORazepam 2MG/ML-1ML VIAL IV PRN (10:15)
[2017-10-16] MEDS ORDERED: LORazepam 2MG/ML-1ML VIAL IV ONE (11:30)
[2017-10-16] MEDS ORDERED: LEVETIRACETAM INJ 1,000 MG in D5W 5% 100 ML IV ONE (12:15)
[2017-10-16] MEDS ORDERED: LEVETIRACETAM INJ 1,000 MG in SODIUM CHL 0.9% 100 ML IV ONE (12:30)
[2017-10-16 13:00] VITALS: BP 121/74
[2017-10-16] MEDS: SODIUM FERR GLUC 62.5MG/5ML 125 MG in SODIUM CHL 0.9% 100 ML IV SCH (13:01)
[2017-10-16] MEDS ORDERED: ONDANSETRON HCL 4 MG/2 ML VIAL IV PRN (13:45)
[2017-10-16] MEDS ORDERED: ASPirin-EC 81 mg tab PO ONE (13:45)
[2017-10-16] MEDS ORDERED: CITALOPRAM HYDROBR 20 MG TAB PO ONE (13:45)
[2017-10-16] MEDS ORDERED: ALBUTEROL SULF 2.5 MG/0.5ML(0.5%) NEB SOLN NEB PRN (14:00)
[2017-10-16] MEDS: OXcarbazepine 300 MG TAB PO SCH ×2 (15:17→21:26)
[2017-10-16 17:00] VITALS: BP 126/70
[2017-10-16] MEDS ORDERED: IOHEXOL 300 MG/ML 100ML BOTTLE IJ ONE (17:38)
[2017-10-16] MEDS ORDERED: TPN PER PHARMACY IV NR ×10 (20:00)
[2017-10-16] MEDS: ATORVASTATIN 20 MG TAB PO SCH (21:26)
[2017-10-16] MEDS: LEVETIRACETAM INJ 500 MG in D5W 5% 100 ML IV SCH (21:38)
[2017-10-16 22:00] VITALS: BP 126/73
[2017-10-17] MEDS: ACCU-CHEK COMFORT CURVE STRIP VI SCH ×5 (00:10→23:54)
[2017-10-17] MEDS: InsuLIN REG 1unit/0.01ml Soln (100units/ml) SC SCH ×5 (00:10→23:54)
[2017-10-17] MEDS: ACETAMINOPHEN 325 MG TAB PO PRN ×2 (04:58→17:35)
[2017-10-17 05:00] VITALS: BP 145/92
[2017-10-17 07:57] LABS: Albumin 2.5 g/dL (3.4-5.0); BUN/Creatinine Ratio 18.2; Bilirubin, Total 0.3 mg/dL (0.2-1.0); Calcium 8.1 mg/dL (8.5-10.1); Magnesium 2.4 mg/dL (1.6-2.6); Phosphorus 3.3 mg/dL (2.5-4.90); Potassium 4.2 mmol/L (3.5-5.1); Total Protein 5.5 g/dL (6.4-8.2)
[2017-10-17 09:00] VITALS: BP 137/82
[2017-10-17] MEDS: OXcarbazepine 300 MG TAB PO SCH ×2 (09:56→21:29)
[2017-10-17] MEDS: ASPirin-EC 81 mg tab PO SCH (09:56)
[2017-10-17] MEDS: CITALOPRAM HYDROBR 20 MG TAB PO SCH (09:56)
[2017-10-17] MEDS: LEVETIRACETAM INJ 500 MG in D5W 5% 100 ML IV SCH (09:56)
[2017-10-17] MEDS: FAMOTIDINE 20 MG TAB PO SCH (09:56)
[2017-10-17] MEDS: BOOST PLUS 8 ounce PO SCH ×2 (09:57→18:00)
[2017-10-17] MEDS: SODIUM FERR GLUC 62.5MG/5ML 125 MG in SODIUM CHL 0.9% 100 ML IV SCH (12:49)
[2017-10-17 13:00] VITALS: BP 125/82
[2017-10-17 17:00] VITALS: BP 127/76
[2017-10-17 18:14] LABS: Basophils # (auto) 0.1 uL; Eosinophils # (auto) 0.2 uL; Neutrophils # (auto) 5.5 uL
[2017-10-17 18:16] LABS: Basophils % (auto) 0.8 % (0.0-2.0); Eosinophils % (auto) 2.7 % (0.0-7.0); Hematocrit 34.4 % (41.0-53.0); Hemoglobin 10.5 g/dL (13.5-17.5); Lymphocytes # (auto) 0.8 uL; Lymphocytes % (auto) 11.2 % (10.0-50.0); Mean Corpuscular Hemoglobin 22.9 pg (28.0-32.0); Mean Corpuscular Hgb Conc. 30.5 g/dL (32.0-36.0); Mean Corpuscular Volume 75.3 fL (80.0-100.0); Monocytes # (auto) 0.7 uL; Monocytes % (auto) 9.1 % (0.0-12.0); Neutrophils % (auto) 76.2 % (37.0-80.0); Nucleated Red Blood Cells % 0.1 %; Platelet Count (auto) 360 10^3/uL (140-450); Red Blood Cells 4.57 10^6/uL (4.5-5.90); White Blood Cell 7.3 10^3/uL (4.4-10.8)
[2017-10-17 18:20] LABS: Red Cell Distribution Width 30.7 % (11.8-14.3)
[2017-10-17 18:26] LABS: Albumin 2.4 g/dL (3.4-5.0); BUN/Creatinine Ratio 15.7; Bilirubin, Total 0.3 mg/dL (0.2-1.0); Potassium 4.3 mmol/L (3.5-5.1); Total Protein 5.5 g/dL (6.4-8.2)
[2017-10-17] MEDS ORDERED: TPN PER PHARMACY IV NR ×11 (20:00)
[2017-10-17] MEDS: ATORVASTATIN 20 MG TAB PO SCH (21:29)
[2017-10-17 22:00] VITALS: BP 120/67
[2017-10-18 05:00] VITALS: BP 130/78
[2017-10-18] MEDS: MORPHINE SULFATE 4 MG/ML SYR/VIAL IV PRN (05:14)
[2017-10-18] MEDS: InsuLIN REG 1unit/0.01ml Soln (100units/ml) SC SCH ×2 (05:30→12:00)
[2017-10-18] MEDS: ACCU-CHEK COMFORT CURVE STRIP VI SCH ×2 (05:30→12:12)
[2017-10-18 09:00] VITALS: BP 126/89
[2017-10-18] MEDS: ASPirin-EC 81 mg tab PO SCH (09:23)
[2017-10-18] MEDS: FAMOTIDINE 20 MG TAB PO SCH (09:23)
[2017-10-18] MEDS: CITALOPRAM HYDROBR 20 MG TAB PO SCH (09:23)
[2017-10-18] MEDS: OXcarbazepine 300 MG TAB PO SCH ×2 (09:23→21:52)
[2017-10-18 09:49] LABS: Basophils # (auto) 0.1 uL; Basophils % (auto) 0.9 % (0.0-2.0); Eosinophils # (auto) 0.2 uL; Eosinophils % (auto) 2.6 % (0.0-7.0); Lymphocytes # (auto) 0.6 uL; Mean Corpuscular Volume 74.4 fL (80.0-100.0); Monocytes # (auto) 0.6 uL; Neutrophils # (auto) 5.3 uL; White Blood Cell 6.7 10^3/uL (4.4-10.8)
[2017-10-18 09:50] LABS: Hematocrit 34.3 % (41.0-53.0); Hemoglobin 10.6 g/dL (13.5-17.5); Lymphocytes % (auto) 9.1 % (10.0-50.0); Mean Corpuscular Hgb Conc. 30.9 g/dL (32.0-36.0); Monocytes % (auto) 8.8 % (0.0-12.0); Neutrophils % (auto) 78.6 % (37.0-80.0); Platelet Count (auto) 368 10^3/uL (140-450); Red Blood Cells 4.61 10^6/uL (4.5-5.90)
[2017-10-18 09:59] LABS: Red Cell Distribution Width 30.8 % (11.8-14.3)
[2017-10-18 10:09] LABS: Albumin 2.5 g/dL (3.4-5.0); BUN/Creatinine Ratio 22.9; Bilirubin, Total 0.2 mg/dL (0.2-1.0); Magnesium 2.3 mg/dL (1.6-2.6); Phosphorus 3.4 mg/dL (2.5-4.90); Potassium 4.5 mmol/L (3.5-5.1); Pre Albumin 12.9 mg/dL (20.0-40.0); Total Protein 5.7 g/dL (6.4-8.2)
[2017-10-18] MEDS: BOOST PLUS 8 ounce PO SCH (10:21)
[2017-10-18 13:00] VITALS: BP 116/70
[2017-10-18 16:00] VITALS: BP 113/68
[2017-10-18] MEDS: FERROUS SULFATE 325 MG TAB PO SCH (17:54)
[2017-10-18 19:20] VITALS: BP 113/68
[2017-10-18] MEDS ORDERED: TPN PER PHARMACY IV NR ×10 (20:00)
[2017-10-18] MEDS: ATORVASTATIN 20 MG TAB PO SCH (21:52)
[2017-10-18 22:00] VITALS: BP 115/70
[2017-10-19 05:00] VITALS: BP 120/71
[2017-10-19] MEDS: MORPHINE SULFATE 4 MG/ML SYR/VIAL IV PRN ×2 (05:18→16:47)
[2017-10-19] MEDS: FERROUS SULFATE 325 MG TAB PO SCH ×2 (08:19→17:49)
[2017-10-19 09:00] VITALS: BP 130/72
[2017-10-19] MEDS: ASPirin-EC 81 mg tab PO SCH (10:57)
[2017-10-19] MEDS: OXcarbazepine 300 MG TAB PO SCH ×2 (10:57→21:30)
[2017-10-19] MEDS: FAMOTIDINE 20 MG TAB PO SCH (10:57)
[2017-10-19] MEDS: CITALOPRAM HYDROBR 20 MG TAB PO SCH (10:57)
[2017-10-19] MEDS: BOOST PLUS 8 ounce PO SCH ×3 (10:58→17:50)
[2017-10-19 13:00] VITALS: BP 134/76
[2017-10-19 17:00] VITALS: BP 135/74
[2017-10-19] MEDS: ATORVASTATIN 20 MG TAB PO SCH (21:29)
[2017-10-19 22:55] VITALS: BP 128/73
[2017-10-20 05:52] VITALS: BP 102/62
[2017-10-20] MEDS: MORPHINE SULFATE 4 MG/ML SYR/VIAL IV PRN (06:58)
[2017-10-20] MEDS: FERROUS SULFATE 325 MG TAB PO SCH ×2 (07:33→18:08)
[2017-10-20] MEDS: BOOST PLUS 8 ounce PO SCH ×2 (08:00→18:08)
[2017-10-20 09:00] VITALS: BP 115/64
[2017-10-20] MEDS: OXcarbazepine 300 MG TAB PO SCH ×2 (09:47→21:16)
[2017-10-20] MEDS: FAMOTIDINE 20 MG TAB PO SCH (09:47)
[2017-10-20] MEDS: CITALOPRAM HYDROBR 20 MG TAB PO SCH (09:47)
[2017-10-20] MEDS: ASPirin-EC 81 mg tab PO SCH (09:47)
[2017-10-20 13:00] VITALS: BP 117/72
[2017-10-20 17:00] VITALS: BP 115/66
[2017-10-20] MEDS: ATORVASTATIN 20 MG TAB PO SCH (21:16)
[2017-10-20 22:00] VITALS: BP 111/68
[2017-10-20] MEDS: ACETAMINOPHEN 325 MG TAB PO PRN (22:22)
[2017-10-21] MEDS: MORPHINE SULFATE 4 MG/ML SYR/VIAL IV PRN (01:29)
[2017-10-21 05:00] VITALS: BP 122/62
[2017-10-21] MEDS: FERROUS SULFATE 325 MG TAB PO SCH (07:25)
[2017-10-21 07:47] VITALS: BP 116/67
[2017-10-21] MEDS: OXcarbazepine 300 MG TAB PO SCH (09:22)
[2017-10-21] MEDS: FAMOTIDINE 20 MG TAB PO SCH (09:22)
[2017-10-21] MEDS: ASPirin-EC 81 mg tab PO SCH (09:22)
[2017-10-21] MEDS: BOOST PLUS 8 ounce PO SCH (09:22)
[2017-10-21] MEDS: CITALOPRAM HYDROBR 20 MG TAB PO SCH (09:22)
== END 2017-10-21 09:50 | DRG 221 ==
LOC: EAST 00:50 → TELE-EAST 07:56 → ICU WEST 10-09 17:39 → TELE-CENTR 10-14 15:08
PROVIDERS: ADMIT Internal Medicine; ATTEND Internal Medicine
PROC: 02703ZZ Dilation of Coronary Artery, One Artery, Percutaneous Approach (ICD-10-PCS; 2017-10-04)
PROC: 4A023N7 Measurement of Cardiac Sampling and Pressure, Left Heart, Percutaneous Approach (ICD-10-PCS; 2017-10-04)
PROC: B2111ZZ Fluoroscopy of Multiple Coronary Arteries using Low Osmolar Contrast (ICD-10-PCS; 2017-10-04)
PROC: 5A1945Z Respiratory Ventilation, 24-96 Consecutive Hours (ICD-10-PCS; 2017-10-09)
PROC: 0DBV0ZX Excision of Mesentery, Open Approach, Diagnostic (ICD-10-PCS; 2017-10-09)
PROC: 0DBW0ZX Excision of Peritoneum, Open Approach, Diagnostic (ICD-10-PCS; 2017-10-09)
PROC: 0DBU0ZX Excision of Omentum, Open Approach, Diagnostic (ICD-10-PCS; 2017-10-09)
PROC: 0DB80ZZ Excision of Small Intestine, Open Approach (ICD-10-PCS; 2017-10-09)
PROC: 30233N1 Transfusion of Nonautologous Red Blood Cells into Peripheral Vein, Percutaneous Approach (ICD-10-PCS; 2017-10-09)
PROC: 0D1B0Z4 Bypass Ileum to Cutaneous, Open Approach (ICD-10-PCS; principal; 2017-10-09 07:52)
DX: C18.9 Malignant neoplasm of colon, unspecified (principal); N17.0 Acute kidney failure with tubular necrosis; I21.4 Non-ST elevation (NSTEMI) myocardial infarction; J96.01 Acute respiratory failure with hypoxia; K63.1 Perforation of intestine (nontraumatic); C78.01 Secondary malignant neoplasm of right lung; E87.0 Hyperosmolality and hypernatremia; E87.2 Acidosis; I95.9 Hypotension, unspecified; C78.02 Secondary malignant neoplasm of left lung; C78.4 Secondary malignant neoplasm of small intestine; C78.7 Secondary malignant neoplasm of liver and intrahepatic bile duct; E11.9 Type 2 diabetes mellitus without complications; K56.609 Unspecified intestinal obstruction, unspecified as to partial versus complete obstruction; I69.354 Hemiplegia and hemiparesis following cerebral infarction affecting left non-dominant side; K92.2 Gastrointestinal hemorrhage, unspecified; I25.10 Atherosclerotic heart disease of native coronary artery without angina pectoris; C79.89 Secondary malignant neoplasm of other specified sites; D62 Acute posthemorrhagic anemia; D63.0 Anemia in neoplastic disease; G40.109 Localization-related (focal) (partial) symptomatic epilepsy and epileptic syndromes with simple partial seizures, not intractable, without status epilepticus; I10 Essential (primary) hypertension; K44.9 Diaphragmatic hernia without obstruction or gangrene; R29.810 Facial weakness; D72.829 Elevated white blood cell count, unspecified; Z51.5 Encounter for palliative care; E44.0 Moderate protein-calorie malnutrition; Z68.28 Body mass index [BMI] 28.0-28.9, adult; Z80.3 Family history of malignant neoplasm of breast; Z86.011 Personal history of benign neoplasm of the brain; Z87.891 Personal history of nicotine dependence; Z99.11 Dependence on respirator [ventilator] status
CPT/HCPCS: 36415; 36600; 70450; 71045; 74250; 80048; 80053; 81001; 82040; 82378; 82570; 82607; 82746; 82805; 82962; 83540; 83550; 83735; 84100; 84300; 84478; 85014; 85018; 85025; 85610; 85730; 86850; 86900; 86901; 86920; 87070; 87081; 87205; 92920; 93005; 93458; 93971; 94002; 94003; 94640; 97110; 97116; 97530; 99152; C9113; J0690; J1815; J2250; J2270; J2405; J3480; J3490; J7060; P9047; Q9967

== ENCOUNTER 2017-11-07 02:28 | Inpatient (IN) | payer MEDICAID ==
[~2017-11-07] VITALS: Ht 180.3 cm; Wt 71.6 kg
[~2017-11-07 02:28] MED LIST: ATO40T PO; CITA-77 PO; ENAL2.5T PO; FAMO-12 PO; METF-370 PO; OXCA600T3 PO
[2017-11-07 03:28] LABS: Basophils # (auto) 0.1 uL; Eosinophils # (auto) 0.3 uL; Lymphocytes # (auto) 1.1 uL; Mean Corpuscular Volume 77.6 fL (80.0-100.0); Monocytes # (auto) 0.7 uL
[2017-11-07 03:30] LABS: Basophils % (auto) 0.8 % (0.0-2.0); Eosinophils % (auto) 3.2 % (0.0-7.0); Hematocrit 34.6 % (41.0-53.0); Lymphocytes % (auto) 13.1 % (10.0-50.0); Mean Corpuscular Hemoglobin 24.6 pg (28.0-32.0); Mean Corpuscular Hgb Conc. 31.7 g/dL (32.0-36.0); Monocytes % (auto) 8.2 % (0.0-12.0); Neutrophils # (auto) 6.2 uL; Neutrophils % (auto) 74.7 % (37.0-80.0); Platelet Count (auto) 402 10^3/uL (140-450); Red Blood Cells 4.46 10^6/uL (4.5-5.90); White Blood Cell 8.3 10^3/uL (4.4-10.8)
[2017-11-07 03:43] LABS: INR 0.97 (0.9-1.15); Partial Thromboplastin Time 29.6 sec (23.78-33.04); Prothrombin Time 10.4 sec (9.27-12.13)
[2017-11-07 03:48] LABS: Albumin 2.4 g/dL (3.4-5.0); Amylase 72 U/L (25-115); Anion Gap 9 (5-15); Blood Urea Nitrogen 16 mg/dL (7-18); Calcium 8.5 mg/dL (8.5-10.1); Carbon Dioxide 22 mmol/L (21-32); Chloride 104 mmol/L (98-107); Glucose 93 mg/dL (74-106); Lipase 506 U/L (73-393); Potassium 4.1 mmol/L (3.5-5.1); Sodium 135 mmol/L (136-145)
[2017-11-07 03:49] LABS: Alanine Aminotransferase 29 U/L (16-61); BUN/Creatinine Ratio 24.6; GFR African American 162 mL/min; GFR Non-African American 134 mL/min
[2017-11-07 03:50] LABS: Red Cell Distribution Width 24.5 % (11.8-14.3)
[2017-11-07 04:01] LABS: Alkaline Phosphatase 273 U/L (45-117); Aspartate Aminotransferase 15 U/L (15-37); Bilirubin, Total 0.2 mg/dL (0.2-1.0); Total Protein 6.4 g/dL (6.4-8.2)
[2017-11-07] MEDS ORDERED: SODIUM CHLORIDE 0.9% 1,000 ML IV ONE (04:15)
[2017-11-07] MEDS ORDERED: NITROGLYCERIN 0.4 MG SL TAB SL PRN (08:45)
[2017-11-07] MEDS ORDERED: MORPHINE SULFATE 8mg/ml INJ SDV IV PRN ×3 (08:45)
[2017-11-07] MEDS ORDERED: DEXTROSE (50%) 50ML SYRG IV PRN (08:45)
[2017-11-07] MEDS ORDERED: LORazepam 0.5 MG TAB PO PRN (08:45)
[2017-11-07] MEDS ORDERED: PROMETHAZINE HCL 25 MG/ML 1ML IV PRN (08:45)
[2017-11-07] MEDS ORDERED: PANTOPRAZOLE 40 MG/10 ML VIAL IV ONE (08:45)
[2017-11-07] MEDS ORDERED: FAMOTIDINE 20 MG TAB PO SCH (10:00)
[2017-11-07] MEDS: OXcarbazepine 300 MG TAB PO SCH ×3 (10:00→21:19)
[2017-11-07] MEDS ORDERED: MORPHINE SULFATE 10 MG/ML INJ 1ML SDV IV PRN ×3 (11:30)
[2017-11-07] MEDS: ACCU-CHEK COMFORT CURVE STRIP VI SCH ×2 (12:00→18:00)
[2017-11-07] MEDS: InsuLIN REG 1unit/0.01ml Soln (100units/ml) SC SCH ×2 (12:00→18:00)
[2017-11-07] MEDS: SODIUM CHLORIDE 0.9% 1,000 ML IV SCH ×3 (12:11→20:10)
[2017-11-07] MEDS: cefTRIAXone 1GM/10ml IVPUSH 10 ML IV SCH (12:11)
[2017-11-07] MEDS: PANTOPRAZOLE 40 MG/10 ML VIAL IV SCH (12:12)
[2017-11-07] MEDS: ENALAPRIL MALEATE 2.5 MG TAB PO SCH (12:12)
[2017-11-07 12:30] VITALS: BP 110/71
[2017-11-07 12:43] VITALS: BP 110/71
[2017-11-07 12:52] LABS: Hematocrit 33.9 % (41.0-53.0); Hemoglobin 10.6 g/dL (13.5-17.5)
[2017-11-07] MEDS: metroNIDAZOLE 500MG/100ML 100 ML IV SCH ×2 (14:00→21:18)
[2017-11-07 17:13] VITALS: BP 117/65
[2017-11-07 18:25] LABS: Hematocrit 34.5 % (41.0-53.0); Hemoglobin 10.9 g/dL (13.5-17.5)
[2017-11-07] MEDS: ATORVASTATIN 20 MG TAB PO SCH (21:15)
[2017-11-07] MEDS: ACETAMINOPHEN 500 MG TAB PO PRN (21:21)
[2017-11-07 21:30] VITALS: BP 95/66
[2017-11-07] MEDS: TEMAZEPAM 15 MG CAP PO PRN (22:04)
[2017-11-08] MEDS: ACCU-CHEK COMFORT CURVE STRIP VI SCH ×4 (00:49→18:00)
[2017-11-08 00:50] LABS: Hematocrit 33.9 % (41.0-53.0); Hemoglobin 10.4 g/dL (13.5-17.5)
[2017-11-08 05:01] VITALS: BP 111/64
[2017-11-08] MEDS: metroNIDAZOLE 500MG/100ML 100 ML IV SCH (05:45)
[2017-11-08] MEDS: InsuLIN REG 1unit/0.01ml Soln (100units/ml) SC SCH ×4 (05:57→18:00)
[2017-11-08 06:09] LABS: Basophils # (auto) 0 uL; Eosinophils # (auto) 0.1 uL; Eosinophils % (auto) 2.3 % (0.0-7.0); Hemoglobin 10.1 g/dL (13.5-17.5); Lymphocytes # (auto) 0.6 uL
[2017-11-08 06:11] LABS: Basophils % (auto) 0.4 % (0.0-2.0); Hematocrit 31.9 % (41.0-53.0); Lymphocytes % (auto) 9.6 % (10.0-50.0); Mean Corpuscular Hemoglobin 24.5 pg (28.0-32.0); Mean Corpuscular Hgb Conc. 31.6 g/dL (32.0-36.0); Mean Corpuscular Volume 77.5 fL (80.0-100.0); Monocytes # (auto) 0.5 uL; Monocytes % (auto) 7.6 % (0.0-12.0); Neutrophils % (auto) 80.1 % (37.0-80.0); Nucleated Red Blood Cells % 0.1 %; Platelet Count (auto) 368 10^3/uL (140-450); Red Blood Cells 4.12 10^6/uL (4.5-5.90); White Blood Cell 6.2 10^3/uL (4.4-10.8)
[2017-11-08 06:15] LABS: Red Cell Distribution Width 23.9 % (11.8-14.3)
[2017-11-08 06:27] LABS: Albumin 2.4 g/dL (3.4-5.0); BUN/Creatinine Ratio 21.7; Bilirubin, Total 0.2 mg/dL (0.2-1.0); Calcium 8.5 mg/dL (8.5-10.1); Potassium 3.9 mmol/L (3.5-5.1); Total Protein 5.9 g/dL (6.4-8.2)
[2017-11-08] MEDS: CITALOPRAM HYDROBR 20 MG TAB PO SCH (06:43)
[2017-11-08] MEDS: ACETAMINOPHEN 500 MG TAB PO PRN ×2 (06:49→20:16)
[2017-11-08 08:18] VITALS: BP 111/68
[2017-11-08] MEDS: PANTOPRAZOLE 40 MG/10 ML VIAL IV SCH (12:27)
[2017-11-08] MEDS: cefTRIAXone 1GM/10ml IVPUSH 10 ML IV SCH (12:27)
[2017-11-08] MEDS: SODIUM CHLORIDE 0.9% 1,000 ML IV SCH (12:27)
[2017-11-08] MEDS: OXcarbazepine 300 MG TAB PO SCH ×2 (12:27→21:43)
[2017-11-08] MEDS: ENALAPRIL MALEATE 2.5 MG TAB PO SCH (12:28)
[2017-11-08 13:44] VITALS: BP 108/69
[2017-11-08 17:17] VITALS: BP 119/67
[2017-11-08] MEDS ORDERED: ALPRAZolam 0.25 MG TAB PO PRN (19:00)
[2017-11-08] MEDS ORDERED: MAGNESIUM SULFATE 1GM/100ML 100 ML IV ONE (19:00)
[2017-11-08 21:30] VITALS: BP 117/75
[2017-11-08] MEDS: TEMAZEPAM 15 MG CAP PO PRN (21:43)
[2017-11-08] MEDS: ATORVASTATIN 20 MG TAB PO SCH (21:43)
[2017-11-09] MEDS: ACCU-CHEK COMFORT CURVE STRIP VI SCH ×4 (00:05→17:30)
[2017-11-09 05:00] VITALS: BP 114/56
[2017-11-09] MEDS: InsuLIN REG 1unit/0.01ml Soln (100units/ml) SC SCH ×4 (06:00→17:30)
[2017-11-09] MEDS: CITALOPRAM HYDROBR 20 MG TAB PO SCH (06:32)
[2017-11-09 07:04] LABS: Basophils # (auto) 0 uL; Eosinophils # (auto) 0.2 uL; Eosinophils % (auto) 2.7 % (0.0-7.0); Mean Corpuscular Hemoglobin 24.8 pg (28.0-32.0)
[2017-11-09 07:08] LABS: Basophils % (auto) 0.8 % (0.0-2.0); Hemoglobin 10.6 g/dL (13.5-17.5); Lymphocytes # (auto) 0.6 uL; Mean Corpuscular Volume 77.3 fL (80.0-100.0); Monocytes # (auto) 0.5 uL; Monocytes % (auto) 7.5 % (0.0-12.0); Neutrophils # (auto) 4.7 uL; Platelet Count (auto) 354 10^3/uL (140-450); Red Blood Cells 4.27 10^6/uL (4.5-5.90)
[2017-11-09 07:10] LABS: Red Cell Distribution Width 23.4 % (11.8-14.3)
[2017-11-09 07:15] LABS: Partial Thromboplastin Time 30.2 sec (23.78-33.04); Prothrombin Time 10.7 sec (9.27-12.13)
[2017-11-09 07:29] LABS: Potassium 3.9 mmol/L (3.5-5.1)
[2017-11-09 07:36] LABS: Calcium 8.5 mg/dL (8.5-10.1)
[2017-11-09 08:21] VITALS: BP 113/69
[2017-11-09] MEDS: ENALAPRIL MALEATE 2.5 MG TAB PO SCH (09:32)
[2017-11-09] MEDS: cefTRIAXone 1GM/10ml IVPUSH 10 ML IV SCH (09:32)
[2017-11-09] MEDS: OXcarbazepine 300 MG TAB PO SCH (09:32)
[2017-11-09 12:28] VITALS: BP 11/68
[2017-11-09 17:18] VITALS: BP 108/67
== END 2017-11-09 18:00 | DRG 240 ==
LOC: EDBD 02:28 → ER 02:32 → TELE 02:33 → TELE-WESTW 10:22
PROVIDERS: ADMIT Internal Medicine; ATTEND Internal Medicine
DX: C18.9 Malignant neoplasm of colon, unspecified (principal); E43 Unspecified severe protein-calorie malnutrition; R56.9 Unspecified convulsions; C20 Malignant neoplasm of rectum; C78.7 Secondary malignant neoplasm of liver and intrahepatic bile duct; K62.5 Hemorrhage of anus and rectum; K85.90 Acute pancreatitis without necrosis or infection, unspecified; F32.9 Major depressive disorder, single episode, unspecified; D63.8 Anemia in other chronic diseases classified elsewhere; E11.9 Type 2 diabetes mellitus without complications; K63.89 Other specified diseases of intestine; F41.9 Anxiety disorder, unspecified; G47.00 Insomnia, unspecified; I25.10 Atherosclerotic heart disease of native coronary artery without angina pectoris; T39.015A Adverse effect of aspirin, initial encounter; K21.9 Gastro-esophageal reflux disease without esophagitis; Z80.3 Family history of malignant neoplasm of breast; Z85.068 Personal history of other malignant neoplasm of small intestine; Z79.899 Other long term (current) drug therapy; Z98.61 Coronary angioplasty status; Y92.89 Other specified places as the place of occurrence of the external cause; Z93.2 Ileostomy status; I25.2 Old myocardial infarction
CPT/HCPCS: 36415; 71045; 74176; 80048; 80053; 80061; 82150; 82962; 83036; 83690; 83880; 84484; 85014; 85018; 85025; 85045; 85610; 85730; 93005; 96361; 96374; 96375; 97163; C9113; J3490